=== PATIENT | female | born 1955 | race Caucasian/White ===

== ENCOUNTER → 2016-07-29 | Outpatient (CLI) | payer OTHER ==
--- NOTE | 2016-07-29 08:22 | CT ---
EXAMINATION TYPE: CT abdomen w con DATE OF EXAM: 07/29/2016 8:08 AM COMPARISON: 11/18/2015 HISTORY: Rt Renal Cyst follow up CT DLP: 1045.2 mGycm CONTRAST: CT scan of the abdomen is performed with Oral Contrast and with IV Contrast, patient injected with 1 00 mL of Omnipaque 300. FINDINGS: LUNG BASES-: No visible nodule. No infiltrate. LIVER/GB: No calcified gallstones. No space occupying hepatic lesion. Biliary tree is of normal ca liber. PANCREAS: No inflammation. Stable splenic cyst measuring 2.2 cm. SPLEEN: No splenic enlargement. No lesion seen. ADRENALS: No nodule. No thickening. KIDNEYS/BLADDER: No hydronephrosis. No nephrolithiasis. Stable 9 mm lesion upper pole right kidney which likely reflects a small cyst. Cortical defect lower pole left kidney may be postoperative in n ature. BOWEL: Normal bowel caliber. No inflammation. LYMPH NODES: No greater than 1cm abdominal or pelvic lymph nodes are appreciated. AORTA: No significant abnormality. OSSEOUS STRUCTURES: No significant abnormality is seen. OTHER: No significant additional abnormality is seen. IMPRESSION: 1. Stable 9 mm lesion upper pole right kidney which likely reflects a small cyst. 2. Stable splenic cyst measuring 2.2 cm.
== END | disposition home or self-care (01) ==
LOC: RADCTMAIN 06:39
PROVIDERS: ATTEND Pediatrics
DX: N28.9 Disorder of kidney and ureter, unspecified (principal); D73.4 Cyst of spleen
CPT/HCPCS: 74160; Q9967

== ENCOUNTER 2017-02-19 12:22 | Inpatient (IN) | payer OTHER ==
[2017-02-19 12:29] VITALS: RESP 18
[2017-02-19 12:39] LABS: Glucose,Whole Blood 142 mg/dL (75-99)
--- NOTE | 2017-02-19 12:43 | ED ---
General Adult HPI - General Chief complaint: Neuro Symptoms/Deficit Stated complaint: Dizziness/Blurred Vision Time Seen by Provider: 02/19/17 12:35 Source: patient, family, RN notes reviewed Mode of arrival: ambulatory Limitations: no limitations - History of Present Illness Initial comments: Patient is a pleasant 61-year-old female presenting to the emergency department complaining of being off balance. Symptoms have been intermittent for the past 3 days. Patient occasionally will lean towards left side. Patient did fall one time however denies any significant injury. Patient has had some occasional blurred vision. Patient denies dizziness. Daughter is concerned that patient has some confusion that she noticed during conversation. She states patient's also noticed similar confusion issues. - Related Data Home Medications Medication Instructions Recorded Confirmed ALPRAZolam [Xanax] 0.25 mg PO BID 02/19/17 02/19/17 Aspirin EC [Ecotrin Low Dose] 81 mg PO DAILY 02/19/17 02/19/17 Atorvastatin Calcium [Lipitor] 10 mg PO DAILY 02/19/17 02/19/17 Baclofen 10 mg PO TID 02/19/17 02/19/17 Cetirizine HCl [Zyrtec] 10 mg PO BID 02/19/17 02/19/17 Cholecalciferol [Vitamin D3] 5,000 unit PO DAILY 02/19/17 02/19/17 Clotrimazole/Betameth Cream 1 applic TOPICAL BID 02/19/17 02/19/17 [Lotrisone] Cyclobenzaprine HCl 10 mg PO TID PRN 02/19/17 02/19/17 Glucosamine Sulfate 500 mg PO BID 02/19/17 02/19/17 Hydrocodone/Acetaminophen [[place] 1 tab PO Q6HR PRN 02/19/17 02/19/17 5-325] Levothyroxine Sodium [Synthroid] 100 mcg PO DAILY 02/19/17 02/19/17 Lisinopril-Hctz 20-25 mg 1 tab PO DAILY 02/19/17 02/19/17 [Zestoretic 20-25] Magnesium Oxide 400 mg PO HS 02/19/17 02/19/17 Multivitamin with Iron 1 tab PO DAILY 02/19/17 02/19/17 [Multivitamins with Iron] Naproxen 500 mg PO BID 02/19/17 02/19/17 Phentermine HCl [Adipex-P] 37.5 mg PO DAILY 02/19/17 02/19/17 Ranitidine HCl [Zantac] 150 mg PO BID 02/19/17 02/19/17 SUMAtriptan SUCCINATE [Imitrex] 100 mg PO DAILY PRN 02/19/17 02/19/17 Vision Formula 1 cap PO DAILY 02/19/17 02/19/17 buPROPion XL [Wellbutrin Xl] 300 mg PO DAILY 02/19/17 02/19/17 traMADol HCL [Ultram] 50 mg PO Q6HR PRN 02/19/17 02/19/17 traZODone HCL 100 mg PO HS PRN 02/19/17 02/19/17 Allergies Allergy/AdvReac Type Severity Reaction Status Date / Time morphine AdvReac Hallucinati Verified 02/19/17 13:14 ons Review of Systems ROS Statement: Those systems with pertinent positive or pertinent negative responses have been documented in the HPI. ROS Other: All systems not noted in ROS Statement are negative. Constitutional: Denies: fever Eyes: Denies: eye pain ENT: Denies: ear pain Respiratory: Denies: cough, dyspnea Cardiovascular: Denies: chest pain Endocrine: Denies: fatigue Gastrointestinal: Denies: abdominal pain Genitourinary: Denies: urgency Musculoskeletal: Denies: back pain Skin: Denies: rash Neurological: Reports: confusion. Denies: headache, weakness Past Medical History Past Medical History: GERD/Reflux, Hyperlipidemia, Hypertension, Osteoarthritis (OA), Thyroid Disorder Additional Past Medical History / Comment(s): urinary incontinence, osteopenia History of Any Multi-Drug Resistant Organisms: None Reported Past Surgical History: Cholecystectomy, Hysterectomy Additional Past Surgical History / Comment(s): bilateral carpal tunnel, bilateral knee rep, bilateral rotator cuff, Past Psychological History: Anxiety, Depression Smoking Status: Never smoker Past Alcohol Use History: None Reported Past Drug Use History: None Reported General Exam Limitations: no limitations General appearance: alert, in no apparent distress Head exam: Present: atraumatic Eye exam: Present: normal appearance, PERRL ENT exam: Present: normal oropharynx Neck exam: Present: normal inspection Respiratory exam: Present: normal lung sounds bilaterally Cardiovascular Exam: Present: regular rate, normal rhythm GI/Abdominal exam: Present: soft. Absent: tenderness Extremities exam: Present: normal inspection Neurological exam: Present: alert, oriented X3, CN II-XII intact. Absent: motor sensory deficit Expanded Neurological exam: Present: protecting the airway Patient oriented to: Present: person, place, time Speech: Present: fluid speech Cranial nerves: EOM's Intact: Normal, Facial Sensation: Normal Cerebellar function: Finger to Nose: Normal (Patient states she felt somewhat off however did touch her nose with both sides.) Sensory exam: Upper Extremity Light Touch: Normal, Lower Extremity Light Touch: Normal Motor strength exam: RUE: 5, LUE: 5, RLE: 5, LLE: 5 Eye Response: (4) open spontaneously Motor Response: (6) obeys commands Verbal Response: (5) oriented Psychiatric exam: Present: normal affect, normal mood Skin exam: Present: normal color Course Vital Signs 02/19/17 02/19/17 12:24 13:35 Temperature 97.4 F L Pulse Rate 72 71 Respiratory 18 18 Rate Blood Pressure 125/61 159/88 O2 Sat by Pulse 97 99 Oximetry - Reevaluation(s) Reevaluation #1: 02/19/17 14:38 Patient is not a TPA candidate secondary to onset greater than 4.5 hours. EKG Findings - EKG Comments: EKG Findings:: Normal sinus rhythm 70. [place] 178. QRS 88. QT 398. QTC 429. Left axis. Inferior Q waves. No acute ST change. Medical Decision Making - Medical Decision Making Patient reevaluated and resting comfortably in bed. Patient and family were updated on results and plan. Case was discussed in detail with Dr. stark, who will admit for Dr. Rahman. - Lab Data Result diagrams: 02/19/17 13:04 02/19/17 13:04 Lab Results 02/19/17 02/19/17 02/19/17 Range/Units 12:33 13:04 13:04 WBC 8.1 (3.8-10.6) k/uL RBC 4.88 (3.80-5.40) m/uL Hgb 14.0 (11.4-16.0) gm/dL Hct 44.1 (34.0-46.0) % MCV 90.5 (80.0-100.0) fL MCH 28.8 (25.0-35.0) pg MCHC 31.8 (31.0-37.0) g/dL RDW 14.3 (11.5-15.5) % Plt Count 305 (150-450) k/uL Neutrophils % 63 % Lymphocytes % 25 % Monocytes % 5 % Eosinophils % 4 % Basophils % 1 % Neutrophils # 5.1 (1.3-7.7) k/uL Lymphocytes # 2.0 (1.0-4.8) k/uL Monocytes # 0.4 (0-1.0) k/uL Eosinophils # 0.3 (0-0.7) k/uL Basophils # 0.1 (0-0.2) k/uL PT (9.0-12.0) sec INR (<1.2) APTT (22.0-30.0) sec Sodium (137-145) mmol/L Potassium (3.5-5.1) mmol/L Chloride (98-107) mmol/L Carbon Dioxide (22-30) mmol/L Anion Gap mmol/L BUN (7-17) mg/dL Creatinine (0.52-1.04) mg/dL Est GFR (MDRD) Af Amer (>60 ml/min/1.73 sqM) Est GFR (MDRD) Non-Af (>60 ml/min/1.73 sqM) Glucose (74-99) mg/dL POC Glucose (mg/dL) 142 H (75-99) mg/dL POC Glu Clay Worker ID Audelia Dawson Calcium (8.4-10.2) mg/dL Total Bilirubin (0.2-1.3) mg/dL AST (14-36) U/L ALT (9-52) U/L Alkaline Phosphatase (38-126) U/L Total Creatine Kinase 147 H (30-135) U/L CK-MB (CK-2) 5.1 H* (0.0-2.4) ng/mL CK-MB (CK-2) Rel Index 3.5 Troponin I <0.012 (0.000-0.034) ng/mL Total Protein (6.3-8.2) g/dL Albumin (3.5-5.0) g/dL 02/19/17 02/19/17 Range/Units 13:04 13:04 WBC (3.8-10.6) k/uL RBC (3.80-5.40) m/uL Hgb (11.4-16.0) gm/dL Hct (34.0-46.0) % MCV (80.0-100.0) fL MCH (25.0-35.0) pg MCHC (31.0-37.0) g/dL RDW (11.5-15.5) % Plt Count (150-450) k/uL Neutrophils % % Lymphocytes % % Monocytes % % Eosinophils % % Basophils % % Neutrophils # (1.3-7.7) k/uL Lymphocytes # (1.0-4.8) k/uL Monocytes # (0-1.0) k/uL Eosinophils # (0-0.7) k/uL Basophils # (0-0.2) k/uL PT 10.8 (9.0-12.0) sec INR 1.1 (<1.2) APTT 23.4 (22.0-30.0) sec Sodium 141 (137-145) mmol/L Potassium 4.3 (3.5-5.1) mmol/L Chloride 102 (98-107) mmol/L Carbon Dioxide 27 (22-30) mmol/L Anion Gap 12 mmol/L BUN 24 H (7-17) mg/dL Creatinine 0.80 (0.52-1.04) mg/dL Est GFR (MDRD) Af Amer >60 (>60 ml/min/1.73 sqM) Est GFR (MDRD) Non-Af >60 (>60 ml/min/1.73 sqM) Glucose 118 H (74-99) mg/dL POC Glucose (mg/dL) (75-99) mg/dL POC Glu Clay Worker ID Calcium 10.2 (8.4-10.2) mg/dL Total Bilirubin 0.6 (0.2-1.3) mg/dL AST 28 (14-36) U/L ALT 44 (9-52) U/L Alkaline Phosphatase 122 (38-126) U/L Total Creatine Kinase (30-135) U/L CK-MB (CK-2) (0.0-2.4) ng/mL CK-MB (CK-2) Rel Index Troponin I (0.000-0.034) ng/mL Total Protein 7.5 (6.3-8.2) g/dL Albumin 4.4 (3.5-5.0) g/dL - Radiology Data Radiology results: report reviewed (Computed tomography scan of the brain shows no acute process), image reviewed (Chest x-ray shows no acute process) Disposition Clinical Impression: Cerebrovascular accident Disposition: ADMITTED IP TO THIS [facility] Referrals: Amor Rahman MD [Primary Care Provider] - 1-2 days Decision Time: 14:38
[2017-02-19 13:14] LABS: Basophils # (A) 0.1 k/uL (0-0.2); Basophils % (A) 1 %; CH 29.8; CHCM 33.1; Eosinophils # (A) 0.3 k/uL (0-0.7); Eosinophils % (A) 4 %; HCT 44.1 % (34.0-46.0); HDW 2.53; Luc # (Auto) 0.19; Luc % (Auto) 2; Lymphocytes % (A) 25 %; MCH 28.8 pg (25.0-35.0); MCHC 31.8 g/dL (31.0-37.0); MCV 90.5 fL (80.0-100.0); Mean Platelet Volume 7.3; Monocytes # (A) 0.4 k/uL (0-1.0); Monocytes % (A) 5 %; Neutrophils # (A) 5.1 k/uL (1.3-7.7); Neutrophils % (A) 63 %; RBC 4.88 m/uL (3.80-5.40); RDW 14.3 % (11.5-15.5); WBC 8.1 k/uL (3.8-10.6); WBC (Perox) 7.75
[2017-02-19 13:22] LABS: INR 1.1 (<1.2); Partial Thromboplastin Time 23.4 sec (22.0-30.0); Prothrombin Time 10.8 sec (9.0-12.0)
[2017-02-19 13:23] LABS: ALT 44 U/L (9-52); AST 28 U/L (14-36); Alkaline Phosphatase 122 U/L (38-126); Anion Gap 12 mmol/L; Blood Urea Nitrogen 24 mg/dL (7-17); Calcium 10.2 mg/dL (8.4-10.2); Carbon Dioxide 27 mmol/L (22-30); Chloride 102 mmol/L (98-107); Glucose 118 mg/dL (74-99); Non-African American GFR(MDRD) >60 (>60 ml/min/1.73 sqM); Potassium 4.3 mmol/L (3.5-5.1); Sodium 141 mmol/L (137-145); Total Bilirubin 0.6 mg/dL (0.2-1.3); Total Protein 7.5 g/dL (6.3-8.2)
[2017-02-19 13:33] LABS: Creatine Kinase 147 U/L (30-135)
--- NOTE | 2017-02-19 13:45 | CT ---
EXAMINATION TYPE: CT brain wo con DATE OF EXAM: 02/19/2017 COMPARISON: NONE HISTORY: Blurred vision. Neuro deficits. CT DLP: 981.1 mGycm. Automated Exposure Control for Dose Reduction was Utilized. TECHNIQUE: CT scan of the head is performed without contrast. FINDINGS: There is no acute intracranial hemorrhage, mass effect, or midline shift identified. The ventricles and sulci are within normal limits in size. The globes are intact and the visualized sin uses are clear. Atherosclerosis is seen of the intracranial vasculature. IMPRESSION: No acute intracranial hemorrhage, mass effect, or midline shift is seen.
[2017-02-19 13:46] LABS: Troponin I <0.012 ng/mL (0.000-0.034)
[2017-02-19 13:51] LABS: Creatine Kinase MB 5.1 ng/mL (0.0-2.4)
--- NOTE | 2017-02-19 13:59 | XR ---
EXAMINATION TYPE: XR chest 2V DATE OF EXAM: 02/19/2017 COMPARISON: NONE HISTORY: Altered mental status TECHNIQUE: Frontal and lateral views of the chest are obtained. FINDINGS: There is no focal air space opacity, pleural effusion, or pneumothorax seen. The cardiac silhouette size is within normal limits. Minimal left basilar atelectasis is seen. There are overall low lung volumes The osseous structures are intact. IMPRESSION: Low lung volumes and left basilar atelectasis.
[2017-02-19] MEDS ORDERED: ASPIRIN 325 MG TAB PO STA (14:40)
[2017-02-19] MEDS: SODIUM CHLORIDE 0.9% 1,000 ML IV SCH (14:58)
[2017-02-19 15:57] VITALS: BMI 34.5
[2017-02-19] MEDS ORDERED: SUMAtriptan SUCCINATE 50 MG TAB PO PRN (16:17)
[2017-02-19] MEDS ORDERED: traZODone HCL 100 MG TAB PO PRN (16:17)
[2017-02-19] MEDS: traMADol 50 MG TAB PO PRN ×2 (16:47→23:11)
[2017-02-19] MEDS: CYCLOBENZAPRINE 10 MG TAB PO PRN (17:10)
--- NOTE | 2017-02-19 18:15 | US ---
EXAMINATION TYPE: US carotid duplex BILAT DATE OF EXAM: 02/19/2017 COMPARISON: NONE CLINICAL HISTORY: Stenosis. Blurred vision, dizziness EXAM MEASUREMENTS: RIGHT: Peak Systolic Velocity (PSV) cm/sec ----- Right CCA: 67.2 ----- Right ICA: 80.5 ----- Right ECA: 93.4 ICA/CCA ratio: 1.2 RIGHT: End Diastole cm/sec ----- Right CCA: 16.3 ----- Right ICA: 25.5 ----- Right ECA: 13.2 LEFT: Peak Systolic Velocity (PSV) cm/sec ----- Left CCA: 68.9 ----- Left ICA: 83.1 ----- Left ECA: 55.2 ICA/CCA ratio: 1.2 LEFT: End Diastole cm/sec ----- Left CCA: 15.8 ----- Left ICA: 19.7 ----- Left ECA: 11.2 VERTEBRALS (direction of flow): Right Vertebral: Antegrade Left Vertebral: Antegrade Mild plaque noted bilateral bifurcations. No evidence of significant stenosis IMPRESSION: Mild bilateral grayscale plaquing at the carotid bulbs with no evidence of hemodynamical ly significant stenosis of either carotid system.
[2017-02-19] MEDS: LORATADINE 10 MG TAB PO SCH (20:43)
[2017-02-19] MEDS: NAPROXEN 250 MG TAB PO SCH (20:43)
[2017-02-19] MEDS: ALPRAZolam 0.25 MG TAB PO SCH (20:43)
[2017-02-19] MEDS: MAGNESIUM OXIDE 400 MG TAB PO SCH (20:43)
[2017-02-19] MEDS: FAMOTIDINE 20 MG TAB PO SCH (20:43)
--- NOTE | 2017-02-19 20:44 | P.CNNES ---
History of Present Illness Consult date: 02/19/17 Reason for Consult: This patient is a 61-year-old female admitted with dizziness and vision pro History of Present Illness: This patient is a 61-year-old right-handed white female who apparently 3 days ago developed some change in her ability to ambulate. Patient states that she was walking and noticed that she was leaning to her left side. Even when walking in the home she tended to lean to the left and this was noticeable for 3 days prior to her evaluation today in the emergency room. Patient states that she was not sure as to the possible cause of this and decided to wait and not seek out medical attention at the time. At the same time 3 days ago she was also noticing some blurring of her vision. She thinks it involved both of the eyes at the time. Even though she was leaning to her left she did not have any falls. She denied any vertigo or dizziness with these episodes. She did mention these clinical findings to her daughter who works as a medical assistant instructor. Her daughter was very concerned and advised her to go to the emergency room. Patient was brought into the ER at [facility] today for further evaluation. She was seen in the ER by Dr. Gonzáles. She was sent for a computed tomography scan of the brain which revealed no acute intracranial abnormalities. She underwent a carotid Doppler ultrasound which failed to reveal any evidence of carotid artery stenosis. Patient states that she is still having some visual changes. She denies any history of glaucoma or cataracts. She is being treated for hyperlipidemia and does take Lipitor 10 mg daily. The patient also has a history of underlying migraine headaches. She has not had any major migraine in over 4 months. She states she still feels somewhat off balance when ambulating. She is now been admitted to the hospital for further neurological evaluation and recommendations. Patient states that she denies any recent fall or head trauma or head injury. She has no previous history of diabetes mellitus. She does suffer from a lumbar disc herniation and has undergone some therapy and injections to her lumbar region of the back. She has not had any recent back pain symptoms. She denies any lumbar radicular type of pain symptoms at this time. Patient is now been admitted and neurology has been consulted for further evaluation and recommendations. Review of Systems Constitutional: Denies chills, Denies fever Eyes: denies blurred vision, denies pain Ears, nose, mouth and throat: Denies headache, Denies sore throat Cardiovascular: Denies chest pain, Denies shortness of breath Respiratory: Denies cough Gastrointestinal: Denies abdominal pain, Denies diarrhea, Denies nausea, Denies vomiting Genitourinary: Denies dysuria, Denies hematuria Musculoskeletal: Denies myalgias Integumentary: Denies pruritus, Denies rash Neurological: Reports confusion, Reports lack of coordination, Reports paresthesias, Reports visual changes, Denies numbness, Denies weakness Psychiatric: Denies anxiety, Denies depression Endocrine: Denies fatigue, Denies weight change Past Medical History Past Medical History: GERD/Reflux, Hyperlipidemia, Hypertension, Osteoarthritis (OA), Thyroid Disorder Additional Past Medical History / Comment(s): urge urinary incontinence, osteopenia History of Any Multi-Drug Resistant Organisms: None Reported Past Surgical History: Cholecystectomy, Hysterectomy Additional Past Surgical History / Comment(s): bilateral carpal tunnel, bilateral knee rep, bilateral rotator cuff, Past Anesthesia/Blood Transfusion Reactions: No Reported Reaction Past Psychological History: Anxiety, Depression Smoking Status: Never smoker Past Alcohol Use History: None Reported Past Drug Use History: None Reported Medications and Allergies Home Medications Medication Instructions Recorded Confirmed Type ALPRAZolam [Xanax] 0.25 mg PO BID 02/19/17 02/19/17 History Aspirin EC [Ecotrin Low Dose] 81 mg PO DAILY 02/19/17 02/19/17 History Atorvastatin Calcium [Lipitor] 10 mg PO DAILY 02/19/17 02/19/17 History Baclofen 10 mg PO TID 02/19/17 02/19/17 History Cetirizine HCl [Zyrtec] 10 mg PO BID 02/19/17 02/19/17 History Cholecalciferol [Vitamin D3] 5,000 unit PO DAILY 02/19/17 02/19/17 History Clotrimazole/Betameth Cream 1 applic TOPICAL BID 02/19/17 02/19/17 History [Lotrisone] Cyclobenzaprine HCl 10 mg PO TID PRN 02/19/17 02/19/17 History Glucosamine Sulfate 500 mg PO BID 02/19/17 02/19/17 History Hydrocodone/Acetaminophen [[place] 1 tab PO Q6HR PRN 02/19/17 02/19/17 History 5-325] Levothyroxine Sodium [Synthroid] 100 mcg PO DAILY 02/19/17 02/19/17 History Lisinopril-Hctz 20-25 mg 1 tab PO DAILY 02/19/17 02/19/17 History [Zestoretic 20-25] Magnesium Oxide 400 mg PO HS 02/19/17 02/19/17 History Multivitamin with Iron 1 tab PO DAILY 02/19/17 02/19/17 History [Multivitamins with Iron] Naproxen 500 mg PO BID 02/19/17 02/19/17 History Phentermine HCl [Adipex-P] 37.5 mg PO DAILY 02/19/17 02/19/17 History Ranitidine HCl [Zantac] 150 mg PO BID 02/19/17 02/19/17 History SUMAtriptan SUCCINATE [Imitrex] 100 mg PO DAILY PRN 02/19/17 02/19/17 History Vision Formula 1 cap PO DAILY 02/19/17 02/19/17 History buPROPion XL [Wellbutrin Xl] 300 mg PO DAILY 02/19/17 02/19/17 History traMADol HCL [Ultram] 50 mg PO Q6HR PRN 02/19/17 02/19/17 History traZODone HCL 100 mg PO HS PRN 02/19/17 02/19/17 History Allergies Allergy/AdvReac Type Severity Reaction Status Date / Time morphine AdvReac Hallucinati Verified 02/19/17 13:14 ons Physical Examination - Vital Signs Vital Signs: Vital Signs Temp Pulse Pulse Resp BP BP Pulse Ox 02/19/17 15:53 96.5 F L 71 18 152/80 95 02/19/17 14:56 97.1 F L 68 18 143/75 95 02/19/17 13:35 71 18 159/88 99 02/19/17 12:24 97.4 F L 72 18 125/61 97 Intake and Output 02/19/17 02/19/17 02/19/17 06:59 14:59 22:59 Intake Total 340 Balance 340 Intake: Intake, IV Titration 100 Amount Sodium Chloride 0.9% 1, 100 000 ml @ 100 mls/hr IV . Q10H [facility] Rx#:[id number] Oral 240 Other: Weight 85.729 kg 85.729 kg Patient Weight 02/20/17 06:59 Weight 85.729 kg - Constitutional General appearance: average body habitus, cooperative - EENT EENT: PERRL, mucous membranes moist - Respiratory Respiratory: lungs clear, normal breath sounds - Cardiovascular Cardiovascular: regular rate, normal S1, normal S2 Extremities: no peripheral edema bilaterally - Gastrointestinal Gastrointestinal: normoactive bowel sounds - Integumentary Integumentary: normal - Neurologic Cranial nerve examination: PERRL, EOMI, VFF, V1/V2/V3 grossly intact, face symmetric, tongue midline, intact gag reflex, intact corneal reflex, normal palatal elevation Speech examination: intact Sensorimotor examination: intact Motor examination - right side: 4/5: biceps, triceps, wrist flexion, wrist extension, aerobics instructor, hip flexors, knee extensors, dorsiflexion, toe extension (EHL) , plantarflexion Motor examination - left side: 3/5: biceps, triceps, wrist flexion, wrist extension, aerobics instructor, 4/5: hip flexors, knee extensors, dorsiflexion, toe extension ( EHL), plantarflexion Detailed sensory examination: intact Reflex and gait examination: intact Reflexes: 1+: ankle, bicep, knee, tricep Cerebellar examination: ataxia, dysmetria - Musculoskeletal Musculoskeletal: no pain - Psychiatric Psychiatric: mood/affect appropriate, cooperative Results - Laboratory Findings CBC and BMP: 02/19/17 13:04 02/19/17 13:04 Abnormal Lab Findings: Abnormal Labs 02/19/17 02/19/17 02/19/17 12:33 13:04 13:04 BUN 24 H Glucose 118 H POC Glucose (mg/dL) 142 H Total Creatine Kinase 147 H CK-MB (CK-2) 5.1 H* Assessment and Plan (1) Transient brainstem ischemia Status: Acute Code(s): G45.9 - TRANSIENT CEREBRAL ISCHEMIC ATTACK, UNSPECIFIED (2) Hyperlipidemia Status: Acute Code(s): E78.5 - HYPERLIPIDEMIA, UNSPECIFIED (3) Ataxic gait Status: Acute Code(s): R26.0 - ATAXIC GAIT (4) Hypertension Status: Acute Code(s): I10 - ESSENTIAL (PRIMARY) HYPERTENSION Plan: This patient is a 61-year-old female admitted to hospital with episode of left- sided gait ataxia and blurred vision. Symptoms have been present for over 3 days. She was brought into the emergency room at [facility] and was seen by Dr. Gonzáles. She underwent a computed tomography scan of the brain which was reported to be negative for any acute stroke or hemorrhage. She underwent carotid Doppler ultrasound which was negative for carotid artery stenosis. Her neurological exam at this time reveals some dysmetria on left finger-nose testing. She has been having difficulty standing and ambulating due to left-sided unsteadiness. Her clinical history suggesting possibility of brainstem ischemia and/or brainstem stroke. We have recommended the patient undergo an MRI of the brain as well as a complete stroke evaluation. Her overall prognosis at this time remains guarded. Would recommend she continue on 1 aspirin daily for secondary stroke prevention which will be reviewed once her stroke workup has been completed. Her overall prognosis at this time remains guarded. Case was discussed at length with the patient and her at bedside. All their questions are answered. Her overall prognosis at this time remains guarded. Time with Patient: Greater than 30
[2017-02-19] MEDS: HYDROcodone/APAP 5-325MG 1 EACH TAB PO PRN (20:51)
[2017-02-20] MEDS: SODIUM CHLORIDE 0.9% 1,000 ML IV SCH ×3 (04:44→23:39)
[2017-02-20] MEDS: HYDROcodone/APAP 5-325MG 1 EACH TAB PO PRN ×2 (04:44→20:49)
[2017-02-20] MEDS: LEVOTHYROXINE 100 MCG TAB PO SCH (06:21)
[2017-02-20] MEDS: CYCLOBENZAPRINE 10 MG TAB PO PRN ×2 (06:21→21:32)
[2017-02-20 06:53] LABS: Basophils % (A) 1 %; CH 29.7; CHCM 32.5; Eosinophils # (A) 0.5 k/uL (0-0.7); Eosinophils % (A) 7 %; HCT 37.6 % (34.0-46.0); HDW 2.46; HGB 11.9 gm/dL (11.4-16.0); Luc % (Auto) 3; Lymphocytes # (A) 2.4 k/uL (1.0-4.8); Lymphocytes % (A) 34 %; MCHC 31.6 g/dL (31.0-37.0); MCV 91.7 fL (80.0-100.0); Mean Platelet Volume 7.3; Monocytes # (A) 0.4 k/uL (0-1.0); Monocytes % (A) 5 %; Neutrophils # (A) 3.5 k/uL (1.3-7.7); Neutrophils % (A) 50 %; RDW 14.1 % (11.5-15.5); WBC (Perox) 7.23
[2017-02-20 07:01] LABS: Anion Gap 7 mmol/L; Blood Urea Nitrogen 24 mg/dL (7-17); Calcium 8.8 mg/dL (8.4-10.2); Carbon Dioxide 24 mmol/L (22-30); Chloride 106 mmol/L (98-107); Cholesterol 119 mg/dL (<200); Glucose 75 mg/dL (74-99); HDL Cholesterol 34 mg/dL (40-60); Non-African American GFR(MDRD) >60 (>60 ml/min/1.73 sqM); Potassium 4.3 mmol/L (3.5-5.1); Sodium 137 mmol/L (137-145)
[2017-02-20] MEDS ORDERED: ATORVASTATIN 10 MG TAB PO SCH (09:00)
[2017-02-20] MEDS: NAPROXEN 250 MG TAB PO SCH ×2 (09:08→20:50)
[2017-02-20] MEDS: buPROPion XL 300 MG TAB.ER.24H PO SCH (09:09)
[2017-02-20] MEDS: LORATADINE 10 MG TAB PO SCH ×2 (09:09→20:50)
[2017-02-20] MEDS: ALPRAZolam 0.25 MG TAB PO SCH ×2 (09:09→20:50)
[2017-02-20] MEDS: ENOXAPARIN 40 MG/0.4 ML SYRINGE SQ SCH (09:09)
[2017-02-20] MEDS: LISINOPRIL-HCTZ 20-25 MG 1 EACH TAB PO SCH (09:09)
[2017-02-20] MEDS: CHOLECALCIFEROL 1,000 UNIT TAB PO SCH (09:09)
[2017-02-20] MEDS: FAMOTIDINE 20 MG TAB PO SCH ×2 (09:12→20:50)
--- NOTE | 2017-02-20 10:04 | MR ---
EXAMINATION TYPE: MR brain wo con DATE OF EXAM: 02/20/2017 COMPARISON: CT scan 02/12/1717 HISTORY: Patient with possible brainstem ischemia T1-weighted sagittal, T2, FLAIR, and diffusion axial, and T2 coronal coronal views of the brain are s ubmitted. There is no evidence of acute ischemia. The ventricles, basal cisterns, and sulci overlying the conv exities are consistent with mild degenerative change. There is no mass effect. Craniocervical junction maintained. Sella turcica has a normal appearance. No cerebellopontine angle mass. Changes of chronic sinusitis noted. There are numerous focal areas of abnormal signal scattered throughout the white matter bilaterally i n a nonspecific pattern. IMPRESSION: 1. No acute intracranial process. 2. Mild degenerative change and nonspecific white matter changes. Differential diagnosis includes rem ote microvascular ischemia.
[2017-02-20] MEDS ORDERED: ASPIRIN 325 MG TAB PO SCH (12:00)
--- NOTE | 2017-02-20 12:17 | P.HPIM ---
History of Present Illness H&P Date: 02/20/17 Chief Complaint: Blurred vision History of presenting complaint . This is a pleasant 61-year-old patient of Dr. Rahman. Chronic stable medical conditions include GERD, hyperlipidemia, hypertension, osteoarthritis, hypothyroid, urinary incontinence, osteopenia, herniated disc in the lower back , anxiety depression. Patient on Monday that is3 days ago noticed blurring on the left side of the admission. She decided to hold off for some time that her daughter asked to come in. The daughter works for a neurologist in [employer]. There is no change in speech. Does some headache. There was no weakness on either limb. No change in walking. No change in swallowing. No numbness tingling otherwise. No prior history of stroke. Since then patient's symptoms completely resolved. Patient's close friend is at the bedside. GEN.: None EYES: As above HEENT: None NECK: None RESPIRATORY: None CARDIOVASCULAR: None GASTROINTESTINAL: None GENITOURINARY: Chronic urinary incontinence] MUSCULOSKELETAL: Chronic low back pain LYMPHATICS: None HEMATOLOGICAL: None PSYCHIATRY: Anxiety depression but controlled NEUROLOGICAL: As above Past medical history: GERD, hyperlipidemia, hypertension, osteoarthritis, hypothyroid, urinary incontinence, osteopenia, herniated disc low back, anxiety, depression Past surgical history: Cholecystectomy, history of acne, bilateral carpal tunnel surgery, bilateral knee Surgery, bilateral rotator cuff surgery. Social history: Does not smoke or drink at all. . Did childcare in the past. Family history: Reviewed, noncontributory to presentation VITAL SIGNS: 97.4, 72, 18, 125/61, 97% on room air GENERAL: Well-built, BMI 34.3, sitting up in bed somewhat uncomfortable because of her back. EYES: Pupils equal. Conjunctiva normal. HEENT: External appearance of nose and ears normal, oral cavity grossly normal. NECK: Short and thick unable to assess JVD; masses not palpable. HEART: First and second heart sounds are normal; no edema. LUNGS: Respiratory rate normal; clear to auscultation. ABDOMEN: Soft, nontender, liver spleen not palpable, no masses palpable. LYMPHATICS: No lymph nodes palpable in the axilla and neck. PSYCH: Alert and oriented x3; mood and affect normal. NEUROLOGICAL: Cranial nerves grossly intact; no facial asymmetry, power and sensation grossly intact. Investigations: White count 8.1, hemoglobin 14, potassium 4.3, creatinine 0.9 LDL 71, HDL 34 Computed tomography scan of the brain-no acute Checks x-ray/carotid Doppler/brain MRi-results reviewed no specific, unremarkable Assessment: -Possible TIA affecting the vision field cannot rule out a peripheral cause the patient is factors include hypertension H -GERD -Essential hypertension -Hyperlipidemia -Primary osteoarthritis multiple joints -Chronic lower back herniated disc likely in the lumbar area -Chronic urinary stress incontinence -Chronic osteopenia -Anxiety depression not otherwise specified uncontrolled -Hypothyroidism -Obesity BMI 34.3 Plan: Patient started on aspirin dose of Lipitor increased to 40 mg a day. Home medications are resumed. Neurology Dr. Salmon was consulted. Await further input from them. Care was discussed in detail with the patient and her friend at the bedside. Past Medical History Past Medical History: GERD/Reflux, Hyperlipidemia, Hypertension, Osteoarthritis (OA), Thyroid Disorder Additional Past Medical History / Comment(s): urge urinary incontinence, osteopenia History of Any Multi-Drug Resistant Organisms: None Reported Past Surgical History: Cholecystectomy, Hysterectomy Additional Past Surgical History / Comment(s): bilateral carpal tunnel, bilateral knee rep, bilateral rotator cuff, Past Anesthesia/Blood Transfusion Reactions: No Reported Reaction Past Psychological History: Anxiety, Depression Smoking Status: Never smoker Past Alcohol Use History: None Reported Past Drug Use History: None Reported Medications and Allergies Home Medications Medication Instructions Recorded Confirmed Type ALPRAZolam [Xanax] 0.25 mg PO BID 02/19/17 02/19/17 History Aspirin EC [Ecotrin Low Dose] 81 mg PO DAILY 02/19/17 02/19/17 History Atorvastatin Calcium [Lipitor] 10 mg PO DAILY 02/19/17 02/19/17 History Baclofen 10 mg PO TID 02/19/17 02/19/17 History Cetirizine HCl [Zyrtec] 10 mg PO BID 02/19/17 02/19/17 History Cholecalciferol [Vitamin D3] 5,000 unit PO DAILY 02/19/17 02/19/17 History Clotrimazole/Betameth Cream 1 applic TOPICAL BID 02/19/17 02/19/17 History [Lotrisone] Cyclobenzaprine HCl 10 mg PO TID PRN 02/19/17 02/19/17 History Glucosamine Sulfate 500 mg PO BID 02/19/17 02/19/17 History Hydrocodone/Acetaminophen [[place] 1 tab PO Q6HR PRN 02/19/17 02/19/17 History 5-325] Levothyroxine Sodium [Synthroid] 100 mcg PO DAILY 02/19/17 02/19/17 History Lisinopril-Hctz 20-25 mg 1 tab PO DAILY 02/19/17 02/19/17 History [Zestoretic 20-25] Magnesium Oxide 400 mg PO HS 02/19/17 02/19/17 History Multivitamin with Iron 1 tab PO DAILY 02/19/17 02/19/17 History [Multivitamins with Iron] Naproxen 500 mg PO BID 02/19/17 02/19/17 History Phentermine HCl [Adipex-P] 37.5 mg PO DAILY 02/19/17 02/19/17 History Ranitidine HCl [Zantac] 150 mg PO BID 02/19/17 02/19/17 History SUMAtriptan SUCCINATE [Imitrex] 100 mg PO DAILY PRN 02/19/17 02/19/17 History Vision Formula 1 cap PO DAILY 02/19/17 02/19/17 History buPROPion XL [Wellbutrin Xl] 300 mg PO DAILY 02/19/17 02/19/17 History traMADol HCL [Ultram] 50 mg PO Q6HR PRN 02/19/17 02/19/17 History traZODone HCL 100 mg PO HS PRN 02/19/17 02/19/17 History Allergies Allergy/AdvReac Type Severity Reaction Status Date / Time morphine AdvReac Hallucinati Verified 02/19/17 13:14 ons Results CBC & Chem 7: 02/20/17 05:44 02/20/17 05:38
--- NOTE | 2017-02-20 14:56 | ECHOF ---
Referral Reason:Thrombus MEASUREMENTS -------- HEIGHT: 157.5 cm WEIGHT: 84.8 kg BP: 150/70 IVSd: 1.2 cm (0.6 - 1.1) LVIDd: 3.6 cm (3.9 - 5.3) LVPWd: 1.2 cm (0.6 - 1.1) EDV(Teich): 53 ml IVSs: 1.9 cm LVIDs: 2.4 cm LVPWs: 1.5 cm %IVS Thck: 61 % ESV(Teich): 19 ml EF(Teich): 64 % %FS: 34 % SV(Teich): 34 ml Ao Diam: 3.2 cm (2.0 - 3.7) AV Cusp: 2.2 cm (1.5 - 2.6) LA Diam: 3.2 cm (2.7 - 3.8) MV EXCURSION: 6.247 mm (> 18.000) MV EF SLOPE: 33 mm/s (70 - 150) EPSS: 1.7 cm MV E Som: 1.11 m/s MV DecT: 224 ms MV Dec [place]: 5.0 m/s MV A Som: 1.13 m/s MV E/A Ratio: 0.98 MV PHT: 65 ms E/E': 16.21 E': 0.07 m/s MR Vmax: 1.85 m/s MR maxP.62 mmHg AV Vmax: 0.96 m/s AV maxP.66 mmHg TR Vmax: 2.13 m/s TR maxP.14 mmHg RAP: 5.00 mmHg RVSP: 23.14 mmHg FINDINGS -------- Sinus rhythm. This was a technically adequate study. There is mild concentric left ventricular hypertrophy. Overall left ventricular systolic function is normal with, an EF between 55 - 60 %. The right ventricle is normal in size and function. The left atrium is normal in size. The right atrium is normal in size. The aortic valve is trileaflet, and appears structurally normal. No aortic stenosis or regurgitation. The mitral valve leaflets are mildly thickened. Mild mitral regurgitation is present. Mild tricuspid regurgitation present. The right ventricular systolic pressure, as measured by Doppler, is 23.14mmHg. Pulmonic valve appears structurally normal. The aortic root size is normal. The pericardium is normal. CONCLUSIONS -------- 1. Sinus rhythm. 2. Mild mitral regurgitation is present. 3. Mild tricuspid regurgitation present. 4. The right ventricular systolic pressure, as measured by Doppler, is 23.14mmHg. 5. Pulmonic valve appears structurally normal. 6. The aortic root size is normal. 7. The pericardium is normal. 8. This was a technically adequate study. 9. There is mild concentric left ventricular hypertrophy. 10. Overall left ventricular systolic function is normal with, an EF between 55 - 60 %. 11. The right ventricle is normal in size and function. 12. The left atrium is normal in size. 13. The right atrium is normal in size. 14. The aortic valve is trileaflet, and appears structurally normal. No aortic stenosis or regurgitation. 15. The mitral valve leaflets are mildly thickened. C WEB DEVELOPER: Lidia Merida RDCS
[2017-02-20] MEDS: MULTIVITAMINS, THERA 1 EACH TAB PO SCH (16:16)
[2017-02-20] MEDS: MAGNESIUM OXIDE 400 MG TAB PO SCH (20:51)
[2017-02-20] MEDS ORDERED: ATORVASTATIN 40 MG TAB PO SCH (21:00)
[2017-02-21] MEDS: CYCLOBENZAPRINE 10 MG TAB PO PRN (06:24)
[2017-02-21] MEDS: LEVOTHYROXINE 100 MCG TAB PO SCH (06:24)
[2017-02-21] MEDS: HYDROcodone/APAP 5-325MG 1 EACH TAB PO PRN (06:24)
[2017-02-21] MEDS: SODIUM CHLORIDE 0.9% 1,000 ML IV SCH (07:35)
[2017-02-21] MEDS: buPROPion XL 300 MG TAB.ER.24H PO SCH (07:44)
[2017-02-21] MEDS: LISINOPRIL-HCTZ 20-25 MG 1 EACH TAB PO SCH (07:44)
[2017-02-21] MEDS: NAPROXEN 250 MG TAB PO SCH (07:44)
[2017-02-21] MEDS: CHOLECALCIFEROL 1,000 UNIT TAB PO SCH (07:44)
[2017-02-21] MEDS: MULTIVITAMINS, THERA 1 EACH TAB PO SCH (07:45)
[2017-02-21] MEDS: ALPRAZolam 0.25 MG TAB PO SCH (07:45)
[2017-02-21] MEDS: ENOXAPARIN 40 MG/0.4 ML SYRINGE SQ SCH (07:45)
[2017-02-21] MEDS: FAMOTIDINE 20 MG TAB PO SCH (07:45)
[2017-02-21] MEDS: LORATADINE 10 MG TAB PO SCH (07:45)
[2017-02-21 07:53] VITALS: PULSE 65; TEMP 97.6
[2017-02-21] MEDS ORDERED: ASPIRIN 81 MG CHEW PO SCH (09:00)
[2017-02-21 16:20] VITALS: BP 124/76
--- NOTE | 2017-02-21 19:06 | P.DS ---
Providers Date of admission: 02/19/17 14:40 Expected date of discharge: 02/21/17 Attending physician: Jose Enrique Zhu Consults: 02/19/17 14:41 Consult Physician Urgent Consulting Provider: Sultana Salmon Consult Reason/Comments: cva Do you want consulting provider notified?: Yes Primary care physician: Amor [facility] Course: FINAL DIAGNOSES: -Possible TIA affecting the vision field cannot rule out a peripheral cause the patient is factors include hypertension -GERD -Essential hypertension -Hyperlipidemia -Primary osteoarthritis multiple joints -Chronic lower back herniated disc likely in the lumbar area -Chronic urinary stress incontinence -Chronic osteopenia -Anxiety depression not otherwise specified uncontrolled -Hypothyroidism -Obesity BMI 34.3 HOSPTIAL COURSE: 61-year-old female who noted about 3 days ago some blurring of the left side of her visual field did not immediately address it until encouraged by her daughter to come in. No change in speech, no weakness no change in ambulatory ability, no change in swallowing no numbness or tingling otherwise. No stroke history. Upon admission symptoms had completely resolved. Admitted for possible TIA. Neurology consulted, CT scan of the head completed with no acute process found, MRI ordered no acute process. Carotid Doppler negative for carotid artery stenosis. Patient has continued to have no further symptoms of stroke or TIA activity, has undergone a complete stroke workup with negative results, tolerating her diet,, ambulatory in the room and santo ways, no further visual disturbances, moving her bowels. Overall condition stable and is appropriate for discharge. PHYSICAL EXAM: CARDIOVASCULAR: First and second sounds noted no edema RESPIRATORY: Effort normal, lung sounds diminished at the bases bilaterally. MUSKULOSKELETAL: No deficits noted in muscle strength and ability NEUROLOGIC: Cranial nerves grossly intact, no facial asymmetry, power and sensation grossly intact. Patient was seen and examined by nurse practitioner Elyssa Andino in all elements of the case discussed with attending Dr. Zhu DISPOSITION: Discharge home to the care of her family Patient Condition at Discharge: Stable Plan - Discharge Summary New Discharge Prescriptions: New Aspirin 81 mg PO DAILY Atorvastatin [Lipitor] 40 mg PO HS #30 tab Continue Naproxen 500 mg PO BID Clotrimazole/Betameth Cream [Lotrisone] 1 applic TOPICAL BID Baclofen 10 mg PO TID traZODone HCL 100 mg PO HS PRN PRN Reason: DEPRESSION Hydrocodone/Acetaminophen [[place] 5-325] 1 tab PO Q6HR PRN PRN Reason: Pain Magnesium Oxide 400 mg PO HS Lisinopril-Hctz 20-25 mg [Zestoretic 20-25] 1 tab PO DAILY Levothyroxine Sodium [Synthroid] 100 mcg PO DAILY SUMAtriptan SUCCINATE [Imitrex] 100 mg PO DAILY PRN PRN Reason: Headache Multivitamin with Iron [Multivitamins with Iron] 1 tab PO DAILY Glucosamine Sulfate 500 mg PO BID Cholecalciferol [Vitamin D3] 5,000 unit PO DAILY Cetirizine HCl [Zyrtec] 10 mg PO BID traMADol HCL [Ultram] 50 mg PO Q6HR PRN PRN Reason: Pain Vision Formula 1 cap PO DAILY Ranitidine HCl [Zantac] 150 mg PO BID Phentermine HCl [Adipex-P] 37.5 mg PO DAILY Cyclobenzaprine HCl 10 mg PO TID PRN PRN Reason: Muscle Spasm ALPRAZolam [Xanax] 0.25 mg PO BID buPROPion XL [Wellbutrin XL] 300 mg PO DAILY Discontinued Atorvastatin Calcium [Lipitor] 10 mg PO DAILY Aspirin EC [Ecotrin Low Dose] 81 mg PO DAILY Discharge Medication List ALPRAZolam [Xanax] 0.25 mg PO BID 02/19/17 [History] Baclofen 10 mg PO TID 02/19/17 [History] Cetirizine HCl [Zyrtec] 10 mg PO BID 02/19/17 [History] Cholecalciferol [Vitamin D3] 5,000 unit PO DAILY 02/19/17 [History] Clotrimazole/Betameth Cream [Lotrisone] 1 applic TOPICAL BID 02/19/17 [History] Cyclobenzaprine HCl 10 mg PO TID PRN 02/19/17 [History] Glucosamine Sulfate 500 mg PO BID 02/19/17 [History] Hydrocodone/Acetaminophen [[place] 5-325] 1 tab PO Q6HR PRN 02/19/17 [History] Levothyroxine Sodium [Synthroid] 100 mcg PO DAILY 02/19/17 [History] Lisinopril-Hctz 20-25 mg [Zestoretic 20-25] 1 tab PO DAILY 02/19/17 [History] Magnesium Oxide 400 mg PO HS 02/19/17 [History] Multivitamin with Iron [Multivitamins with Iron] 1 tab PO DAILY 02/19/17 [ History] Naproxen 500 mg PO BID 02/19/17 [History] Phentermine HCl [Adipex-P] 37.5 mg PO DAILY 02/19/17 [History] Ranitidine HCl [Zantac] 150 mg PO BID 02/19/17 [History] SUMAtriptan SUCCINATE [Imitrex] 100 mg PO DAILY PRN 02/19/17 [History] Vision Formula 1 cap PO DAILY 02/19/17 [History] buPROPion XL [Wellbutrin XL] 300 mg PO DAILY 02/19/17 [History] traMADol HCL [Ultram] 50 mg PO Q6HR PRN 02/19/17 [History] traZODone HCL 100 mg PO HS PRN 02/19/17 [History] Aspirin 81 mg PO DAILY 02/21/17 [Rx] Atorvastatin [Lipitor] 40 mg PO HS #30 tab 02/21/17 [Rx] Follow up Appointment(s)/Referral(s): Amor Rahman MD [Primary Care Provider] - 02/24/17 11:00 am Sandro Swenson MD [STAFF PHYSICIAN] - 1 Week (office will contact you for appt) Patient Instructions/Handouts: Transient Ischemic Attack (DC) Activity/Diet/Wound Care/Special Instructions: Heart Healthy diet Discharge Disposition: HOME SELF-CARE
== END 2017-02-21 17:28 | disposition home or self-care (01) | DRG 69 ==
LOC: EC 12:22 → 6SEL 14:40
PROVIDERS: ADMIT Hospitalist; ATTEND Hospitalist
DX: G45.9 Transient cerebral ischemic attack, unspecified (principal); I10 Essential (primary) hypertension; E03.9 Hypothyroidism, unspecified; K21.9 Gastro-esophageal reflux disease without esophagitis; E66.9 Obesity, unspecified; F32.9 Major depressive disorder, single episode, unspecified; F41.9 Anxiety disorder, unspecified; R29.700 NIHSS score 0; M19.91 Primary osteoarthritis, unspecified site; G89.29 Other chronic pain; N39.46 Mixed incontinence; M51.26 Other intervertebral disc displacement, lumbar region; R41.0 Disorientation, unspecified; H53.8 Other visual disturbances; R26.0 Ataxic gait; E78.5 Hyperlipidemia, unspecified; M85.80 Other specified disorders of bone density and structure, unspecified site; Z79.899 Other long term (current) drug therapy; Z88.5 Allergy status to narcotic agent; Z79.82 Long term (current) use of aspirin; Z79.891 Long term (current) use of opiate analgesic; Z90.49 Acquired absence of other specified parts of digestive tract; Z90.710 Acquired absence of both cervix and uterus; Z96.653 Presence of artificial knee joint, bilateral
CPT/HCPCS: 36415; 70450; 70551; 71020; 80048; 80053; 80061; 82550; 82553; 84484; 85025; 85610; 85730; 93005; 93306; 93880; 95819; 96360; 99285

== ENCOUNTER → 2017-05-16 | Outpatient (CLI) | payer OTHER ==
--- NOTE | 2017-05-16 17:16 | XR ---
EXAMINATION TYPE: XR mandible complete DATE OF EXAM: 05/16/2017 COMPARISON: NONE HISTORY: Pain TECHNIQUE: 5 views FINDINGS: The mandibular ring appears intact. I see no fracture. I see no focal bony destructive proc ess. IMPRESSION: Negative mandible exam.
--- NOTE | 2017-05-16 17:18 | XR ---
EXAMINATION TYPE: XR hand limited RT DATE OF EXAM: 05/16/2017 COMPARISON: NONE HISTORY: Pain TECHNIQUE: 2 views FINDINGS: I see no fracture nor dislocation. Metacarpals appear intact. Joint spaces are overall fair ly normal. There are no erosions. There is some spurring at the first carpometacarpal joint and the f irst MP joint. IMPRESSION: Osteoarthritis in the thumb. No sign of inflammatory arthritis. No fracture seen.
== END | disposition home or self-care (01) ==
LOC: RADXRMAIN 16:22
PROVIDERS: ATTEND Pediatrics
DX: M19.041 Primary osteoarthritis, right hand (principal); M79.641 Pain in right hand
CPT/HCPCS: 70110

== ENCOUNTER → 2017-11-23 | Outpatient (CLI) | payer OTHER ==
[2017-11-23 11:25] LABS: T4, Free (Free Thyroxine) 1.88 ng/dL (0.78-2.19)
[2017-11-23 18:05] LABS: Iron Saturation 22.12 (12.00-45.00)
[2017-11-23 18:54] LABS: Folate, Serum >24.0 ng/mL
[2017-11-25 09:43] LABS: Vitamin B1 87 ug/L (38-122)
== END | disposition home or self-care (01) ==
LOC: LABWHC1 10:12
PROVIDERS: ATTEND Psychiatry & Neurology Pain Medicine
DX: R41.3 Other amnesia (principal); R53.83 Other fatigue
CPT/HCPCS: 36415; 82607; 82728; 82746; 83540; 83550; 84207; 84425; 84439; 84443; 84466; 84481; 84591

== ENCOUNTER → 2017-12-01 | Outpatient (CLI) | payer OTHER ==
[2017-12-01 15:22] LABS: Blood Urea Nitrogen 22 mg/dL (7-17)
--- NOTE | 2017-12-01 18:59 | MR ---
EXAMINATION TYPE: MR angio head wo con DATE OF EXAM: 12/01/2017 COMPARISON: 02/20/2017 MRI brain HISTORY: Transient cerebral ischemic attack TECHNIQUE: Utilizing 3-D [id number] intracranial MRA of the upper [place] of [place] was performed. FINDINGS: The vertebrobasilar and carotid systems are patent. Left vertebral artery is dominant. Right vertebra l artery is either occluded or congenitally absent. There is nodular prominence of the right MCA bifu rcation measuring 2 mm IMPRESSION: 1. Fusiform enlargement of the right MCA bifurcation measuring approximately 2 mm suspicious for smal l aneurysm. 6 month follow-up could be obtained to assess for stability..
--- NOTE | 2017-12-01 19:09 | MR ---
EXAMINATION TYPE: MR brain wo/w con DATE OF EXAM: 12/01/2017 COMPARISON: 02/20/2017 HISTORY: Transient cerebral ischemic attack TECHNIQUE: Multiplanar, multisequence images of the brain and brainstem is performed without and with IV contras t, utilizing 7.5 mL intravenous Gadavist . FINDINGS: Diffusion weighted images demonstrate no evidence of a recent infarct or other diffusion ab normality. WHITE MATTER: There are approximately 25-30 areas of abnormal signal within the white matter with the largest measu ring 8 mm left frontal lobe. There are no callosal lesions. No lesions perpendicular to the ventricular system. There is a single subcortical lesion within the right parietal lobe. No enhancing lesions. Morphology, size and number of lesions are stable compared to prior exam. Midline structures demonstrate normal morphology. The craniocervical junction appears within normal limits. Post contrast images demonstrate no abnormal enhancement. There is changes of chronic sinusitis.. IMPRESSION: 1. Stable nonspecific white matter changes as discussed above. Differential diagnosis would include r emote microvascular ischemia. Other etiologies not excluded correlate clinically.
== END | disposition home or self-care (01) ==
LOC: RADMRIMAIN 14:44
PROVIDERS: ATTEND Psychiatry & Neurology Neurology
DX: R90.89 Other abnormal findings on diagnostic imaging of central nervous system (principal); G45.9 Transient cerebral ischemic attack, unspecified
CPT/HCPCS: 82565; 84520; 70544; 70553; A9581

== ENCOUNTER 2018-04-25 14:12 | Emergency (ER) | payer MEDICARE ==
[2018-04-25 14:29] VITALS: TEMP 98.1
--- NOTE | 2018-04-25 14:44 | ED ---
Fall HPI - General Chief Complaint: Fall Stated Complaint: Fall Time Seen by Provider: 04/25/18 14:28 Source: patient, EMS Mode of arrival: EMS - History of Present Illness Initial Comments: This is a 60-year-old female the ER with mechanical trip and fall trip and fall forward or going down uneven pavement. Patient had no loss of consciousness is not on blood thinners, is complaining of pain to her nose and bridge of her nose , denies any active bleeding. Denies headache chest pain shortness of breath or abdominal pain -: days(s) (2) Fall From: standing When Fall Occurred: 1 hour [employer] Fall Witnessed: yes, by family Place Fall Occurred: home Loss of Consciousness: none Prolonged Down Time?: no Location: head Severity: mild Severity scale (1-10): 1 Context: tripped/slipped Associated Symptoms: denies - Related Data Home Medications Medication Instructions Recorded Confirmed ALPRAZolam [Xanax] 0.25 mg PO BID 02/19/17 04/25/18 Cetirizine HCl [Zyrtec] 10 mg PO BID 02/19/17 04/25/18 Cholecalciferol [Vitamin D3] 5,000 unit PO DAILY 02/19/17 04/25/18 Clotrimazole/Betameth Cream 1 applic TOPICAL BID 02/19/17 04/25/18 [Lotrisone] Cyclobenzaprine HCl 10 mg PO TID PRN 02/19/17 04/25/18 Levothyroxine Sodium [Synthroid] 100 mcg PO DAILY 02/19/17 04/25/18 Lisinopril-Hctz 20-25 mg 1 tab PO DAILY 02/19/17 04/25/18 [Zestoretic 20-25] Multivitamin with Iron 1 tab PO DAILY 02/19/17 04/25/18 [Multivitamins with Iron] Naproxen 500 mg PO BID 02/19/17 04/25/18 Ranitidine HCl [Zantac] 150 mg PO BID 02/19/17 04/25/18 traMADol HCL [Ultram] 50 mg PO Q6HR PRN 02/19/17 04/25/18 Atorvastatin [Lipitor] 80 mg PO DAILY 04/25/18 04/25/18 Clopidogrel [Plavix] 75 mg PO DAILY 04/25/18 04/25/18 Dextroamphetamine/Amphetamine 10 mg PO DAILY 04/25/18 04/25/18 [Adderall Xr] Memantine [Namenda] 10 mg PO BID 04/25/18 04/25/18 Previous Rx's Medication Instructions Recorded Aspirin 81 mg PO DAILY 02/21/17 Allergies Allergy/AdvReac Type Severity Reaction Status Date / Time morphine AdvReac Hallucinati Verified 04/25/18 15:28 ons Review of Systems ROS Statement: Those systems with pertinent positive or pertinent negative responses have been documented in the HPI. ROS Other: All systems not noted in ROS Statement are negative. Past Medical History Past Medical History: GERD/Reflux, Hyperlipidemia, Hypertension, Osteoarthritis (OA), Thyroid Disorder Additional Past Medical History / Comment(s): urge urinary incontinence, osteopenia History of Any Multi-Drug Resistant Organisms: None Reported Past Surgical History: Cholecystectomy, Hysterectomy Additional Past Surgical History / Comment(s): bilateral carpal tunnel, bilateral knee rep, bilateral rotator cuff, Past Anesthesia/Blood Transfusion Reactions: No Reported Reaction Past Psychological History: Anxiety, Depression Smoking Status: Never smoker Past Alcohol Use History: None Reported Past Drug Use History: None Reported General Exam Limitations: no limitations General appearance: alert, in no apparent distress Head exam: Present: normocephalic, normal inspection. Absent: atraumatic ( Facial abrasion abrasion to nose, no septal hematoma) Eye exam: Present: normal appearance, PERRL, EOMI. Absent: scleral icterus, conjunctival injection, periorbital swelling ENT exam: Present: normal exam, mucous membranes moist Neck exam: Present: normal inspection. Absent: tenderness, meningismus, lymphadenopathy Respiratory exam: Present: normal lung sounds bilaterally. Absent: respiratory distress, wheezes, rales, rhonchi, stridor Cardiovascular Exam: Present: regular rate, normal rhythm, normal heart sounds. Absent: systolic murmur, diastolic murmur, rubs, gallop, clicks GI/Abdominal exam: Present: soft, normal bowel sounds. Absent: distended, tenderness, guarding, rebound, rigid Extremities exam: Present: normal inspection, full ROM, normal capillary refill. Absent: tenderness, pedal edema, joint swelling, calf tenderness Back exam: Present: normal inspection Neurological exam: Present: alert, oriented X3, CN II-XII intact Psychiatric exam: Present: normal affect, normal mood Skin exam: Present: warm, dry, intact, normal color. Absent: rash Course Vital Signs 04/25/18 04/25/18 14:22 15:24 Temperature 98.1 F Pulse Rate 70 81 Respiratory 18 20 Rate Blood Pressure 114/56 113/73 O2 Sat by Pulse 96 96 Oximetry Medical Decision Making - Medical Decision Making 62 female fall forward. Abrasion to the bridge of nose, CT brain C-spine and facial bones negative for traumatic injury. Patient can be discharged home - Radiology Data Radiology results: report reviewed (CT brain C-spine patient was negative for acute disease), image reviewed Disposition Clinical Impression: Fall, Facial abrasion, Head injuries Disposition: HOME SELF-CARE Condition: Good Instructions: Fall Prevention for Older Adults (ED), Head Injury (ED), Abrasion (ED) Is patient prescribed a controlled substance at d/c from ED?: No Referrals: Amor Rahman MD [Primary Care Provider] - 1-2 days
[2018-04-25] MEDS: DIPH,PERTUS(ACELL)TETVAC-LF 0.5 ML VIAL IM ONE ×2 (15:22→15:26)
--- NOTE | 2018-04-25 15:24 | CT ---
EXAMINATION TYPE: CT brain cspine wo con, CT facial bones wo con DATE OF EXAM: 04/25/2018 COMPARISON: CT facial bones same date, CT brain 02/19/2017 HISTORY: Fall today with frontal and nasal injury. CT DLP: 1841 mGycm Automated exposure control for dose reduction was used. TECHNIQUE: CT scan of the head and facial bones and cervical spine are performed without contrast. FINDINGS: There is no acute intracranial hemorrhage, mass effect, or midline shift identified. The ventricles and sulci are within normal limits in size. The globes are intact and the visualized sin uses are clear. Cervical spine is visualized in its entirety from C1 through upper thoracic levels and demonstrates s atisfactory alignment without evidence of acute fracture or dislocation. Spondylosis is present denis cially at C5-6 and C6-7 with associated loss of disc height. Prevertebral soft tissue appears within normal limits. Multilevel foraminal encroachment noted. There are facet arthropathy changes. The C1- C2 articulation is unremarkable. Facial bones show no displaced fracture. Orbits are intact. Paranasal sinuses are well aerated, no ev ident air-fluid level to suggest acute hemorrhage. Lucency through the distal aspect of the nasal bon e could possibly represent a nondisplaced fracture, correlate for point tenderness IMPRESSION: 1. There is no acute fracture or dislocation evident in the cervical spine. 2. No acute intracranial hemorrhage, mass effect, or midline shift is seen. 3. Correlate for point tenderness distal aspect of the nasal bone.
[2018-04-25 15:26] VITALS: BP 113/73; PULSE 81; RESP 20
--- NOTE | 2018-04-26 03:41 | CDI ---
Documentation Clarification OP Dear Shree Zavala, DO Please do addendum to ED report for complete HPI, Physical Exam and MDM. Thank you, Umberto Card Payable Representative If you have any questions, please contact Charge Entry Specialist at [phone] [facility]
== END 2018-04-25 15:57 | disposition home or self-care (01) ==
LOC: EC 14:12
DX: S00.31XA Abrasion of nose, initial encounter (principal); K21.9 Gastro-esophageal reflux disease without esophagitis; E78.5 Hyperlipidemia, unspecified; I10 Essential (primary) hypertension; M19.90 Unspecified osteoarthritis, unspecified site; E07.9 Disorder of thyroid, unspecified; F32.9 Major depressive disorder, single episode, unspecified; F41.9 Anxiety disorder, unspecified; Z79.1 Long term (current) use of non-steroidal anti-inflammatories (NSAID); Z79.01 Long term (current) use of anticoagulants; Z79.899 Other long term (current) drug therapy; Z88.5 Allergy status to narcotic agent; Z53.29 Procedure and treatment not carried out because of patient's decision for other reasons; W01.0XXA Fall on same level from slipping, tripping and stumbling without subsequent striking against object, initial encounter; Y93.01 Activity, walking, marching and hiking; Y92.480 Sidewalk as the place of occurrence of the external cause
CPT/HCPCS: 70450; 70486; 72125; 90715; 99284

== ENCOUNTER → 2018-05-11 | Outpatient (CLI) | payer MEDICARE ==
--- NOTE | 2018-05-15 10:22 | MM ---
Reason for exam: screening (asymptomatic). Last mammogram was performed 1 year and 1 month ago. History: Patient is postmenopausal. Took estrogen for 13 years. Physical Findings: A clinical breast exam by your physician is recommended on an annual basis and results should be correlated with mammographic findings. MG 3D Screening Mammo W/Cad Bilateral CC and MLO view(s) were taken. Prior study comparison: April 20, 2017, bilateral MG screening mammo w CAD. October 22, 2015, bilateral MG screening mammo w CAD. There are scattered fibroglandular densities. Scattered benign round and punctate calcifications. No significant changes when compared with prior studies. ASSESSMENT: Negative, BI-RAD 1 RECOMMENDATION: Routine screening mammogram of both breasts in 1 year.
== END | disposition home or self-care (01) ==
LOC: RADMAMWWP 16:19
PROVIDERS: ATTEND Pediatrics
DX: Z12.31 Encounter for screening mammogram for malignant neoplasm of breast (principal)
CPT/HCPCS: 77063; 77067

== ENCOUNTER 2018-10-17 06:17 | Day surgery (SDC) | payer MEDICARE ==
[2018-10-12 14:38] VITALS: BMI 31.1
--- NOTE | 2018-10-16 13:25 | HP ---
HISTORY AND PHYSICAL Surgery is scheduled for 10/17/2018. Ashley Sanders is a 63-year-old patient seen with progressive right shoulder pain. We discussed options. She elected to proceed with arthroscopy. Consent was obtained. Preoperative medical clearance was provided by Dr. Rahman. PAST MEDICAL HISTORY: Hypothyroidism, hypertension, hyperlipidemia. PAST SURGICAL HISTORY: Noncontributory. DAILY MEDICATIONS: 1. Levothyroxine. 2. Lisinopril/hydrochlorothiazide. 3. Lovastatin. 4. Plavix. ALLERGIES: MORPHINE. SOCIAL HISTORY: She denies tobacco use. PHYSICAL EXAMINATION: Physical evaluation of the right shoulder: Flexion 170 degrees, abduction 160 degrees, external rotation is 50 degrees with weakness. There is tenderness along the anterolateral acromion and rotator cuff insertion site. Impingement sign is positive at 90 degrees. Drop-arm sign is positive. Distal neurovascular exam is intact Right shoulder radiographs revealed cystic changes of the tuberosity and evidence for metallic anchors within the humeral head. A right shoulder MRI revealed a labral tear and some metallic artifact. IMPRESSION: Right shoulder impingement with probable rotator cuff tear and labral tear. PLAN: Right shoulder arthroscopy with subacromial decompression probable arthroscopic rotator cuff repair and debridement. MMODL / IJN: [id number] /
[~2018-10-17 06:17] MED LIST: LACTATED RINGERS 1,000 ML IV SCH; LIDOCAINE 1% 20 ML VIAL (10MG/ML) FOR IV START INTRADERMA PRN; ONDANSETRON 4 MG/2 ML VIAL IVP ONE; ceFAZolin IN SWFI 2 GM/20 ML SYRINGE IVP ONE; fentaNYL (PF) 50 MCG/ML 2 ML AMP IV PRN
[2018-10-17] MEDS ORDERED: LACTATED RINGERS 1,000 ML IV ONE ×2 (06:56→08:05)
[2018-10-17] MEDS ORDERED: MIDAZOLAM (PF) 2 MG/2 ML VIAL IVP ONE (06:59)
[2018-10-17] MEDS ORDERED: PROPOFOL 10 MG/ML 20 ML VIAL IV ONE (07:16)
[2018-10-17] MEDS ORDERED: fentaNYL (PF) 50 MCG/ML 2 ML AMP ONE (07:16)
[2018-10-17] MEDS ORDERED: ePHEDrine SULFATE/0.9% NACL/PF 50 MG/5 ML SYRINGE IV ONE (07:16)
[2018-10-17] MEDS ORDERED: SUCCINYLCHOLINE CHLORIDE 100 MG/5 ML SYR IV ONE (07:16)
[2018-10-17] MEDS ORDERED: GLYCOPYRROLATE 0.2 MG/ML 2 ML VIAL ONE (07:16)
[2018-10-17] MEDS ORDERED: PHENYLEPHRINE-0.9% NACL SYG 1 MG/10 ML SYRINGE ONE (07:16)
[2018-10-17] MEDS ORDERED: ROPIVACAINE 5 MG/ML 30 ML VIAL ONE (07:16)
[2018-10-17] MEDS ORDERED: LIDOCAINE 1% INJ 10MG/ML (20 ML MDV) ONE (07:16)
--- NOTE | 2018-10-17 09:01 | P.ONQ ---
Anesthesiology Proc Note - PNB - Peripheral Nerve Block Performed Right Interscalene Single Time Out Performed: Yes Procedure Start Time: 06:59 Indication: Acute Post-Operative Pain Specifically requested for management of pain by DrBren: Jona Davison Sedation Type: Sedate with meaningful contact maintained Preparation: Sterile Prep Position: Supine Catheter: None Needle Types: Other (see comment) (Pajunk) Needle Size: 50mm (2") Needle Gauge: 21 Technique: Ultrasound Injectate: 0.5% Ropivacaine (see comment for volume) (20) Blood Aspirated: No Pain Paresthesia on Injection Noted: No Resistance on Injection: Normal Events: Uneventful and Well Tolerated
--- NOTE | 2018-10-17 09:42 | P.OP ---
Date of Procedure: 10/17/18 Preoperative Diagnosis: Right shoulder impingement Postoperative Diagnosis: 1. Right shoulder massive retracted rotator cuff tear 2. Right shoulder impingement 3. Right shoulder labral tear 4. Right shoulder glenohumeral joint osteoarthritis Procedure(s) Performed: 1. Right shoulder arthroscopic rotator cuff repair 2. Right shoulder arthroscopic subacromial decompression 3. Right shoulder arthroscopic debridement labral tear Implants: 2Arthrex swivel lock anchors Anesthesia: GETA, regional (Interscalene block) Surgeon: Jona Davison Screw Machine Set Up Operator Tool #1: Carlos Patel Estimated Blood Loss (ml): 10 Pathology: none sent Condition: stable Disposition: PACU Indications for Procedure: 63-year-old patient seen with progressive right shoulder pain. After treatment options were discussed, she elected to proceed with arthroscopy. Operative Findings: See description of procedure Description of Procedure: Patient underwent an interscalene block by department of anesthesia for postoperative pain management. The patient was then taken to the operative suite. The patient underwent a general anesthetic by the department of anesthesia. The patient was placed into a lateral position and secured. There was appropriate padding of the bony prominence. Right shoulder was then prepped and draped in normal sterile orthopedic fashion. We placed the extremity in 10 pounds of longitudinal traction. A posterior incision was now made for a posterior working portal site. The trocar and cannula were inserted into the glenohumeral joint. Arthroscopy was initiated. Spinal needle was now inserted anteriorly, to ascertain the anterior working portal site. An incision was now made in that area, a trocar was inserted followed by a probe. There was grade 3/4 chondromalacia changes of the glenoid and grade 3 chondromalacia changes of the humeral head. The biceps tendon was absent. There was superficial tearing of the anterior superior labrum. There was a massive rotator cuff tear visualized from glenohumeral side. I debrided the superficial labral tear down to stable tissue. Instruments now removed from the glenohumeral joint. Utilizing the posterior working portal site, the trocar and cannula were inserted into the subacromial space. Arthroscopy initiated. I made an incision 2 fingerbreadths lateral to the acromion. I introduced my trocar followed by my ArthroCare ablator. I now began ablating thick subacromial bursal tissue, which exposed the undersurface of the anterior acromion. There was a massive rotator cuff tear with significant retraction noted. There were remnants of suture from previous surgery she had. I meticulously removed all the remnant suture. There was diminished subacromial space. There were some small subacromial spurs. I performed a subacromial decompression. There was good decompression of subacromial space. The before meals joint showed evidence for previous Pam procedure. I turned my attention to the rotator cuff tendon. I attempted to pull it over the footprint with inability to get anywhere near the footprint. I now meticulously began releasing the tendon after spending excess of time doing this I was able to just barely get it to the edge of the footprint. I now decided to proceed with an attempted repair. I passed 4 sutures for converging stitches. I then passed 2 everted mattress sutures through the anterior aspect the supraspinatus and 1 everted mattress the posterior aspect. We now pulled as far as we could with the arm abducted and could barely get the tendon distally to the edge the footprint. I decided to proceed with this attempted repair. With the assistance of Aurelio RAPP we repaired the anterior aspect of the tendon with one swivel lock anchor in 3 over sutures. We did the same thing for the posterior aspect of the tendon utilizing in 3 sutures and one anchor. Residual suture material was clipped. We had a good stable repair but the tendon was under quite a bit of tension as we could only get it to the edge the footprint. I injected 1 mL Renue intra-articular. Instruments now removed from the portal sites. All portal sites were approximated with nylon suture. Sterile dressings were applied followed by a shoulder immobilizer. Carlos RAPP assisted in this complex case. The patient was awakened, transferred to a bed, and taken to recovery in stable condition. Her prognosis remains guarded given this massive retracted tear.
[2018-10-17 09:44] VITALS: TEMP 97.6
[2018-10-17 09:58] VITALS: RESP 16
[2018-10-17 10:37] VITALS: PULSE 70
[2018-10-17 11:49] VITALS: BP 100/57
== END 2018-10-17 11:50 | disposition home or self-care (01) ==
LOC: OR 06:17
PROVIDERS: ATTEND Orthopaedic Surgery
DX: M75.101 Unspecified rotator cuff tear or rupture of right shoulder, not specified as traumatic (principal); M75.41 Impingement syndrome of right shoulder; S43.431A Superior glenoid labrum lesion of right shoulder, initial encounter; X58.XXXA Exposure to other specified factors, initial encounter; M19.011 Primary osteoarthritis, right shoulder; M94.211 Chondromalacia, right shoulder; E78.5 Hyperlipidemia, unspecified; I10 Essential (primary) hypertension; E03.9 Hypothyroidism, unspecified; L40.9 Psoriasis, unspecified; G43.909 Migraine, unspecified, not intractable, without status migrainosus; M41.9 Scoliosis, unspecified; M51.17 Intervertebral disc disorders with radiculopathy, lumbosacral region; M47.896 Other spondylosis, lumbar region; M43.16 Spondylolisthesis, lumbar region; M48.061 Spinal stenosis, lumbar region without neurogenic claudication; F03.90 Unspecified dementia, unspecified severity, without behavioral disturbance, psychotic disturbance, mood disturbance, and anxiety; E55.9 Vitamin D deficiency, unspecified; E66.01 Morbid (severe) obesity due to excess calories; Z68.31 Body mass index [BMI] 31.0-31.9, adult; F41.9 Anxiety disorder, unspecified; Z86.73 Personal history of transient ischemic attack (TIA), and cerebral infarction without residual deficits; K21.9 Gastro-esophageal reflux disease without esophagitis; G47.00 Insomnia, unspecified; Z79.1 Long term (current) use of non-steroidal anti-inflammatories (NSAID); Z79.02 Long term (current) use of antithrombotics/antiplatelets; Z79.890 Hormone replacement therapy; Z79.891 Long term (current) use of opiate analgesic; Z79.899 Other long term (current) drug therapy; Z88.5 Allergy status to narcotic agent
CPT/HCPCS: 64415; 29826; 29827; C1713; C1765; J2405; J2001; J3010; J2795; J2370; J0330; J2704; J0690; J2250

== ENCOUNTER → 2019-04-08 | Outpatient (CLI) | payer MEDICARE ==
--- NOTE | 2019-04-08 09:29 | CT ---
EXAMINATION TYPE: CT shoulder RT wo con DATE OF EXAM: 04/08/2019 COMPARISON: None HISTORY: Rt. Shoulder pain CT DLP: 396.1 mGycm Automated exposure control for dose reduction was used. Technique: Axial images 3 mm thick sections, reconstructed images in the coronal and sagittal planes. FINDINGS: There is some displacement of the acromioclavicular junction. This is likely chronic. The humeral head articulates with the glenoid. There is loss of the joint space compatible with osteo arthritic degenerative change. Humeral head spurring is present. Rotator cuff tendon repair is eviden t with screws within the lateral humeral head. There is some mild elevation of the humeral head in re lation to the glenoid. There is some preservation space between the humeral head and the acromion. No acute fractures identified at the shoulder. Soft tissues appear normal. Portion of the lung field within the field of view is normal. IMPRESSION: 1. ACROMIOCLAVICULAR JUNCTION SEPARATION. THIS COULD BE POST RESECTION. THERE IS SOME MILD ELEVATION OF THE HUMERAL HEAD IN RELATION TO THE ACROMION WITH PRESERVATION OF A PORTION OF THE ACROMIAL GENARO L JOINT SPACE. 2. MODERATELY ADVANCED GLENOHUMERAL OSTEOARTHRITIC DEGENERATIVE CHANGE.
== END | disposition home or self-care (01) ==
LOC: RADCTMAIN 08:12
PROVIDERS: ATTEND Orthopaedic Surgery
DX: M19.011 Primary osteoarthritis, right shoulder (principal); M89.8X2 Other specified disorders of bone, upper arm

== ENCOUNTER → 2019-12-20 | Outpatient (CLI) | payer MEDICARE ==
--- NOTE | 2019-12-23 10:32 | MM ---
Reason for exam: screening (asymptomatic). Last mammogram was performed 1 year and 7 months ago. History: Patient is postmenopausal. Took estrogen for 13 years. Physical Findings: A clinical breast exam by your physician is recommended on an annual basis and results should be correlated with mammographic findings. MG 3D Screening Mammo W/Cad Bilateral CC and MLO view(s) were taken. Prior study comparison: May 11, 2018, bilateral MG 3d screening mammo w/cad. April 20, 2017, bilateral MG screening mammo w CAD. There are scattered fibroglandular densities. No significant changes when compared with prior studies. ASSESSMENT: Benign, BI-RAD 2 RECOMMENDATION: Routine screening mammogram of both breasts in 1 year.
== END | disposition home or self-care (01) ==
LOC: RADMAMWWP 09:07
PROVIDERS: ATTEND Pediatrics
DX: Z12.31 Encounter for screening mammogram for malignant neoplasm of breast (principal)
CPT/HCPCS: 77063; 77067

== ENCOUNTER → 2020-01-03 | Outpatient (CLI) | payer MEDICARE | END | disposition home or self-care (01) | LOC: LABWHC1 16:15 | PROVIDERS: ATTEND Psychiatry & Neurology Neurology | DX: Z53.9 Procedure and treatment not carried out, unspecified reason (principal) ==

== ENCOUNTER → 2020-01-07 | Outpatient (CLI) | payer MEDICARE ==
--- NOTE | 2020-01-07 08:54 | US ---
EXAMINATION TYPE: US abdomen limited DATE OF EXAM: 01/07/2020 COMPARISON: NONE CLINICAL HISTORY: R10.9 ABD PAIN. Patient c/o palpable to left of midline, and noted x 1 month. Patie nt denies problems. US findings: Cystic/fluid area cluster noted left hypogastric area near C section scar and size = 0. 7 x 0.7 x 0.9 cm. No change in area of concern with and without Valsalva Maneuver. IMPRESSION: 1. Hypoechoic collection at the subcutaneous scar could be small hematoma or resolving sero ma.
== END | disposition home or self-care (01) ==
LOC: RADUSWWP 07:03
PROVIDERS: ATTEND Pediatrics
DX: R93.5 Abnormal findings on diagnostic imaging of other abdominal regions, including retroperitoneum (principal); R10.9 Unspecified abdominal pain
CPT/HCPCS: 76705

== ENCOUNTER → 2020-09-21 | Outpatient (CLI) | payer MEDICARE | END | disposition home or self-care (01) | LOC: LABWHC1 15:02 | PROVIDERS: ATTEND Psychiatry & Neurology Neurology | DX: Z20.822 Contact with and (suspected) exposure to COVID-19 (principal) | CPT/HCPCS: U0003; U0005 ==

== ENCOUNTER → 2020-12-10 | Outpatient (CLI) | payer MEDICARE ==
--- NOTE | 2020-12-11 07:33 | XR ---
EXAMINATION TYPE: XR foot complete RT DATE OF EXAM: 12/10/2020 CLINICAL HISTORY: Right foot pain TECHNIQUE: Frontal, lateral, and oblique images of the right foot are obtained. COMPARISON: None FINDINGS: There is no acute fracture/dislocation evident in the right foot. There are degenerative c hanges noted in the first metatarsal-phalangeal joint, first interphalangeal joint and marked degener ative changes of the midfoot. If there is clinical concern for mass, MRI with and without contrast is the study of choice. IMPRESSION: Chronic changes of the right foot, as described.
== END | disposition home or self-care (01) ==
LOC: RADXRMAIN 18:09
PROVIDERS: ATTEND Pediatrics
DX: M79.671 Pain in right foot (principal)

== ENCOUNTER → 2020-12-24 | Outpatient (CLI) | payer MEDICARE | END | disposition home or self-care (01) | CPT/HCPCS: 77063; 77067 ==

== ENCOUNTER → 2021-01-06 | Outpatient (CLI) | payer MEDICARE ==
--- NOTE | 2021-01-06 10:50 | USB ---
EXAMINATION TYPE: US breast workup limited RT DATE OF EXAM: 01/06/2021 COMPARISON: Mammogram same date CLINICAL HISTORY: N63 lump/mass. Findings: Right breast was scanned with ultrasound from 9-12 o'clock and in the retroareolar region and axillar y tail. In the right breast at 12:00, there is a 1.3 x 0.7 x 1.3 cm heterogeneous lesion which corresponds we ll in size, location and morphology to the asymmetry seen on mammogram and corresponds to bruising on the skin. Follow-up ultrasound is recommended in 6-8 weeks. The palpable abnormality felt in the far lateral right breast by nurse at this visit does not have a mammographic or sonographic correlate and clinical correlation is recommended. IMPRESSION: 1. Follow-up right breast ultrasound in 6-8 weeks is recommended for the likely hematoma at 12:00. 2. No mammographic or sonographic correlate for the palpable abnormality felt in the far lateral righ t breast by nurse at this visit. Clinical correlation is recommended. BI-RADS 3, probably benign.
--- NOTE | 2021-01-06 11:08 | MM ---
Reason for exam: additional evaluation requested from abnormal screening. Last mammogram was performed less than 1 month ago. History: Patient is postmenopausal. Took estrogen for 13 years. Physical Findings: Nurse Summary: 1.5-2cm lesion in the right breast at 9 o'clock and a 1cm nodule in the right breast at 1 o'clock (nurse db). MG 3D Work Up W/Cad RT Spot compression CC, spot compression MLO, and LM view(s) were taken of the right breast. Prior study comparison: December 24, 2020, bilateral MG 3d screening mammo w/cad. December 20, 2019, bilateral MG 3d screening mammo w/cad. May 11, 2018, bilateral MG 3d screening mammo w/cad. There are scattered fibroglandular densities. There is a persistent asymmetry in the right breast at 12 o'clock measuring approximately 1.3cm about 9cm from nipple and ultrasound is recommended. This area corresponds to a visual bruise on skin. No mammographic correlate for right palpable and ultrasound is recommended. These results were verbally communicated with the patient and result sheet given to the patient on 01/06/21. ASSESSMENT: Incomplete: need additional imaging evaluation, BI-RAD 0 RECOMMENDATION: Ultrasound of the right breast.
== END | disposition home or self-care (01) ==
LOC: RADMAMWWP 08:27
PROVIDERS: ATTEND Pediatrics
DX: N64.89 Other specified disorders of breast (principal); Z78.0 Asymptomatic menopausal state; Z79.818 Long term (current) use of other agents affecting estrogen receptors and estrogen levels
CPT/HCPCS: 77065; 76642; G0279; 77061

== ENCOUNTER → 2021-04-30 | Outpatient (CLI) | payer MEDICARE ==
--- NOTE | 2021-05-03 09:30 | MM ---
Reason for exam: follow-up at short interval from prior study. Last mammogram was performed 4 months ago. History: Patient is postmenopausal. Took estrogen for 13 years. Physical Findings: Nurse Summary: 1cm nodule in the right breast at 12 o'clock (nurse elvin). MG 3D Diag Mammo W/Cad SU Bilateral CC and MLO view(s) were taken. Prior study comparison: January 06, 2021, right breast MG 3d work up w/cad RT. December 24, 2020, bilateral MG 3d screening mammo w/cad. There are scattered fibroglandular densities. Focal asymmetry decreased from prior right upper breast. No significant new findings when compared with previous films. These results were verbally communicated with the patient and result sheet given to the patient on 04/30/21. ASSESSMENT: Benign, BI-RAD 2 RECOMMENDATION: Routine screening mammogram of both breasts in 1 year. Manage patient on a clinical basis.
--- NOTE | 2021-05-03 09:31 | USB ---
Reason for exam: follow-up at short interval from prior study. History: Patient is postmenopausal. Took estrogen for 13 years. US Breast BILAT Right complete breast ultrasound includes all four quadrants, the retroareolar region and axilla. Finding demonstrates a 0.8 x 0.6 x 0.4cm resolving hematoma at 12 o'clock. Left complete breast ultrasound includes all four quadrants, the retroareolar region and axilla. Finding demonstrates no cystic or solid lesion seen. These results were verbally communicated with the patient and result sheet given to the patient on 04/30/21. ASSESSMENT: Benign, BI-RAD 2 RECOMMENDATION: Routine screening mammogram of both breasts in 1 year.
== END | disposition home or self-care (01) ==
LOC: RADMAMWWP 13:48
PROVIDERS: ATTEND Pediatrics
DX: N64.89 Other specified disorders of breast (principal); Z78.0 Asymptomatic menopausal state; L76.32 Postprocedural hematoma of skin and subcutaneous tissue following other procedure
CPT/HCPCS: 77066; 76641; G0279; 77062

== ENCOUNTER → 2021-05-31 | Outpatient (CLI) | payer MEDICARE ==
--- NOTE | 2021-05-31 09:24 | CT ---
EXAMINATION TYPE: CT shoulder LT wo con DATE OF EXAM: 05/31/2021 COMPARISON: None. HISTORY: Osteoarthritis primary. Pain. History of right shoulder arthroplasty. CT DLP: 324.8 mGycm Automated exposure control for dose reduction was used. FINDINGS: Osseous structures noted demineralized. There is abnormal widening of the acromioclavicular joint. No significant spurring is seen. There are metallic anchors from prior rotator cuff surgery. There is moderate to severe narrowing gle nohumeral joint with moderate to severe medial humeral head spurring. There is bony irregularity or B ankart type lesion to the posterior superior osseous glenoid. There is high riding humeral head consi stent with chronic rotator cuff tear. Glenoid retroversion is present. Glenoid bone loss measures 1.5 mm anteriorly and 3.3 mm centrally and 5.6 mm posteriorly using the paleoglenoid method axial image 16. There is mild to moderate generalized fat replaced atrophy of the supraspinatus muscle bulk and infra spinatus muscle bulk. Teres minor muscle bulk is maintained. Subscapularis muscle bulk is maintained. Visualized left lung is clear. Underlying scoliosis of the cervicothoracic spine is partially imaged. IMPRESSION: As above.
== END | disposition home or self-care (01) ==
LOC: RADCTMAIN 08:05
PROVIDERS: ATTEND Orthopaedic Surgery Sports Medicine
DX: M62.512 Muscle wasting and atrophy, not elsewhere classified, left shoulder (principal); M19.012 Primary osteoarthritis, left shoulder; R93.6 Abnormal findings on diagnostic imaging of limbs

== ENCOUNTER → 2021-08-23 | Outpatient (CLI) | payer OTHER ==
--- NOTE | 2021-08-23 09:18 | CT ---
EXAMINATION TYPE: CT amanda shoulder LT wo con DATE OF EXAM: 08/23/2021 COMPARISON: CT dated 05/31/2021 HISTORY: pre op LT shoulder CT DLP: 719.8 mGycm Automated exposure control for dose reduction was used. TECHNIQUE: Multiplanar CT scan of the left shoulder without IV contrast administration as per Amanda preoperative planning protocol. FINDINGS: Mild posterior displacement of the lateral aspect of the left clavicle in relation to the acromion co nsistent with mild subluxation. 3 metallic anchors are seen fixing the humeral head, unchanged. Advan sher degenerative changes of the glenohumeral articulation with narrowing of the joint space, glenoid and humeral head osteophytosis and subchondral sclerotic changes. There is mild anterior superior subluxation of the humeral head in relation to the glenoid which coul d be related to chronic rotator cuff tear. Unchanged glenohumeral articular relation as detailed in t he previous report. No definite acute fracture line identified. Markedly reduced acromiohumeral dista nce measuring 2.6 mm. Fatty infiltration of the supra and infraspinatus muscles. Degenerative changes of the left sternocla vicular joint. Degenerative changes of the lower cervical and thoracic spine. Scattered arterial athe rosclerotic calcifications. The pulmonary trunk measures 3.2 cm which may suggest pulmonary hypertens ion. Coronary arterial atherosclerotic calcifications. IMPRESSION: Degenerative changes, postsurgical changes and signs of chronic rotator cuff tears as described above .
== END | disposition home or self-care (01) ==
LOC: RADCTMAIN 07:09
PROVIDERS: ATTEND Orthopaedic Surgery Sports Medicine
DX: Z01.818 Encounter for other preprocedural examination (principal); M19.012 Primary osteoarthritis, left shoulder; M75.112 Incomplete rotator cuff tear or rupture of left shoulder, not specified as traumatic